=== PATIENT | female | born 1945 | race Caucasian/White ===

== ENCOUNTER 2025-02-22 15:03 | Inpatient (IN) | payer MEDICARE, OTHER, SELFPAY ==
[2025-02-22] VITALS (9 sets, daily range): BP systolic 108–154; BP diastolic 60–90; BMI 28.1
[2025-02-22 11:17] LABS: Hematocrit 44.9 % (37.0-47.0); Hemoglobin 14.5 g/dL (12.0-16.0); Mean Corp Hgb Conc. 32.3 g/dL (33.0-37.0); Mean Corpuscular Volume 101.1 fL (81.0-99.0); Platelet Count 128 10^3/uL (130-400); Red Cell Dist. Width 13.5 % (11.5-14.5)
[2025-02-22 11:28] LABS: ALT (SGPT) 23 U/L (0-35); AST (SGOT) 32 U/L (14-36); Albumin 4.2 g/dl (3.5-5.0); Alkaline Phosphatase 48 U/L (38-126); Blood Urea Nitrogen 16 mg/dl (7-17); Calcium 9.0 mg/dl (8.4-10.2); Carbon Dioxide 26 mmol/L (22-30); Chloride 102 mmol/L (98-107); Estimated Creatinine Clearance 69 ml/min; Glucose 128 mg/dl (70-99); Potassium 4.0 mmol/L (3.5-5.1); Sodium 136 mmol/L (135-145); Total Protein 7.3 g/dl (6.3-8.2); eGFR > 60.00
[2025-02-22 11:36] LABS: Absolute Neutrophils -Man Diff 4.1 10^3/uL (1.4-6.5); Normal RBC Morphology Yes; Platelets Checked Yes; Total Cells Counted 100
--- NOTE | 2025-02-22 11:46 | ED.GENMED ---
History of Present Illness
General
Chief Complaint: Change in Mental Status
Source: patient and records
Exam Limitations: clinical condition and altered mental status
Time Seen by Provider: 02/22/25 11:06
Nursing documentation reviewed up to this point in time: agreed with
History of Present Illness
History of Present Illness:
79-year-old female with some developmental issues, presents with fatigue decreased responsiveness usually oriented x 1 she has had a dry cough with confusion, low pulse ox
Past History
Past History
ED Past Medical History: Other
ED Past Surgical History: Other
Social History
Tobacco: Non-smoker
Alcohol: None
Drug: None
Living: detention
Employment: Not employed
Family History
Family History: Unable to obtain (Decreased responsive)
Review of Systems
Review of Systems
Unable to obtain full review of systems at this time due to: due to acuity
Other source history: transfer record
All Other Systems: Not applicable
Phy Exam
Physical Exam
Physical Exam:
Physical Exam
General: Ill-appearing female
Neck: supple. no meningeal signs. normal psoterior pharynx
Heart: s1/s2 regular rate and rhythm, no murmur. equal radial pulses.
Lungs: Crackles
Abdomen:Nontender
Neuro: Globally weak
Skin: no rash
Psychiatric: Unable to fully assess
Extremities: no edema.
Sepsis
Sepsis Screening
Sepsis Assessment: Sepsis Ruled Out
Sepsis Screen
Sepsis Screen: Sepsis Ruled Out
Date: 03/01/25
Time: 06:34
Course
Orders/Labs/Results
Orders:
Orders
02/22/25 11:00
Complete Blood Count/With Diff Urgent
Comprehensive Metabolic Panel Urgent
Manual Differential Urgent
NT-proBNP Urgent
Comment: ADD ON
02/22/25 11:26
CR Chest Portable - 1 View Urgent
Comment:
Reason For Exam: sob low sats
Reason Study Needs to be Portable: Unable to Transport
02/22/25 12:08
ABG [Arterial Blood Gas] Urgent
%Oxygen/Room Air: 4
02/22/25 13:09
Straight cath- Treatment ONCE
Ipratropium/Albuterol Sulfate [Duoneb] 3 ml INH R NOW STA
02/22/25 13:18
Urinalysis Reflex To Culture Urgent
Date Specimen was Collected: 02/22/25
Time Specimen was Collected: 13:16
Urine Microscopic Reflex Cult Urgent
Urine Culture Urgent
DARIUS Source: U
Specimen Description:
Date Specimen was Collected: 02/22/25
Time Specimen was Collected: 13:16
02/22/25 14:04
Add On- LAB Urgent
Tests Added?: urine culture
Urine Culture Urgent
DARIUS Source: Urine
Specimen Description:
Obtained by: Bladder
Date Specimen was Collected: 02/24/25
Time Specimen was Collected: 23:30
02/22/25 14:05
CefTRIAXone [Rocephin] 1,000 mg IV NOW STA
02/22/25 14:08
0.9% Sodium Chloride 1000 ml [Nss] 1,000 ml IV BOLUS
02/22/25 14:32
Admit/Transfer Patient As Directed
Co-Sign Provider:
Level of Care: Inpatient admission
Assign to:: Telemetry
Physician / Group: Francheska Lyn MD
Diagnosis: Toxic metabolic encephalopathy
Reason for Telemetry: Unstable coronarysyndrome
Other Reason for Telemetry: Requiring oxygen
Date to Stop Telemetry: 02/25/25
Time to Stop Telemetry: 11:00
Reason for Hospitalization: Toxic metabolic encephalopathy
Expected length of stay greater than two midnights?: Yes
ELOS- Estimated Length of Stay in days: 3
I certify the patient meets the requirements for IP care: Yes
02/22/25 14:33
Lactate Level [Lactic Acid] Q4H
Blood Culture Q30M
DARIUS Source: Blood/Venous
Specimen Description:
PRN Pain Medication Management As Directed
May give lesser potent ordered pain med per pt: Yes
preference::
Protocol:: Medication orders for pain may be administered in a
manner that supports deferring to patient preference
when the pt is:
- Requesting an ordered lesser potent pain medication.
Least to most potent pain medications are defined
as: acetaminophen < NSAID < tramadol < opioids
(morphine, oxycodone, hydromorphone).
- Requesting a lesser dose of the same medication IF
ORDERED.
- Requesting a less intrusive route of administration
if both routes are prescribed by the provider (PO <
IV).
02/22/25 14:36
Add On- LAB Routine
Tests Added?: BNP
02/22/25 14:39
Code Status As Directed
Resuscitation Status: Full Code
02/22/25 14:43
Furosemide [Lasix] 20 mg IV NOW STA
Midodrine [ProAmatine] 15 mg PO NOW STA
02/22/25 14:45
Blood Culture Q30M
DARIUS Source: Blood/Venous
Specimen Description:
02/22/25 14:52
ECG [Electrocardiogram (*1)] Urgent
Reason for Study: Shortness of Breath
Other Reason for Exam: tele admit
02/22/25 14:53
EKG- Treatment ONCE
02/22/25 Dinner
2000 calorie (17 carb) Diabetic
At Your Request: Non-Participating
Fluid Restriction: 1800 mL/day (60 oz)
Diabetic Diet: Sodium, 2 Gram
02/22/25 16:10
Acetaminophen [Tylenol] 650 mg PO Q4HPRN PRN fever>100, pain
Dextrose 50%-Water [Dextrose 50% Syringe] 12.5 grams IV [id number] PRN
Glucagon [GlucaGen] 1 mg IM PRN PRN
Hydrocortisone [Hydrocortisone 1% Cream] 1 applic TOPICAL [id number] PRN rash on back, stomach, arms
Nitroglycerin Sublingual [Nitrostat (Sublingual)] 0.4 mg SL Q5MPRN PRN chest pain
Polyethylene Glycol Powder [Miralax] 17 grams PO DAILY PRN constipation
02/22/25 16:10
HF DIETARY CONSULT Routine
HF EDUCATOR CONSULT Routine
Comment:
Activity As Directed
Activity Level: As Tolerated
Bedside Glucose Monitoring As Directed
Frequency: AC&HS
Additional Instructions:: Change to q6h if pt on TPN, tube feeding or not eating
Intake/ Output As Directed
Frequency: Per unit guidelines
Patient Education As Directed
Type: CHF folder
Comment: give on admission. Document in Interdisciplinary Education record
Sleep Apnea Assessment by RN As Directed
Comment:
Physician Instructions:
Vital Signs As Directed
Frequency: Other
Additional Instructions:: Q12 or per unit guidelines if more frequent.
Weight As Directed
Frequency: Daily
Type of Scale: Standing Scale
Comment: Daily morning weight. If unable to stand, use balanced bed scale.
Weight As Directed
Frequency: Once
Type of Scale: Standing Scale
Comment: Upon Admission. If unable to stand, use balanced bed scale.
Pulse Ox/cont/shift [RESP] Routine
Quantity: 1
Special Instructions: Daily pulse oximetry at rest. If greater than 92% at rest also obtain pulse oximetry
while ambulating as tolerated.
Pt Eval And Treat Routine
Activity Level: As Tolerated
DX Deep Vein Thrombosis Video Routine
02/22/25 16:30
Gabapentin [Neurontin] 300 mg PO TID
Insulin Aspart Corrective Low [Novolog Flexpen-Low Resistance] See Protocol SC AC
02/22/25 18:00
Enoxaparin Sodium [Lovenox] 40 mg SC QPM
02/22/25 20:00
Hydrocortisone [Cortef] 10 mg PO BID
fluticasone propionate 1 spray NASAL BID
02/22/25 22:00
Atorvastatin [Lipitor] 40 mg PO HS
Midodrine [ProAmatine] 15 mg PO TID
02/23/25 06:00
Echo 2D MMode Color/Doppler IN AM
Reason for Study: heart failure
02/23/25 07:15
Complete Blood Count/With Diff IN AM
Glycohemoglobin (HgbA1c) IN AM
02/23/25 08:00
Aspirin Low Dose EC [Aspir Low (Enteric Coated)] 81 mg PO DAILY
Fludrocortisone Acetate [Florinef] 0.2 mg PO DAILY
Furosemide [Lasix] 20 mg IV BID AT 0800,1600
Lidocaine [Lidocaine 4% Patch] 1 patch TOPICAL DAILY
Apply Lidocaine patch(s) to:: lower back
Metoprolol Xl [Toprol Xl] 12.5 mg PO DAILY
02/25/25 11:00
DC Protocol for Telemetry ONCE
Abnormal Lab Results
02/22/25 02/22/25 02/22/25
11:00 12:08 13:18
MCV 101.1 H fL
(81.0-99.0)
MCH 32.7 H pg
(27.0-31.0)
MCHC 32.3 L g/dL
(33.0-37.0)
Plt Count 128 L 10^3/uL
(130-400)
Band Neutrophils 5 H %
(0-3)
Monocytes (Manual) 19 H %
(2-9)
pCO2 36 H mmHg
(32-35)
ABG O2 Sat (Measured) 98.3 H %
(94-98)
Glucose 128 H mg/dl
(70-99)
Total Bilirubin 1.4 H mg/dl
(0.2-1.3)
Ur Occult Blood Reflex 4+ A
(Negative)
Urine Nitrite (Reflex) Positive A
(Negative)
Leukocyte Esterase Rfl 2+ A
(Negative)
Urine RBC 11-15 A /HPF
(0-2)
Urine WBC (Reflex) 40-50 A /HPF
(0-5)
Urine Bacteria (Reflex) Many A
(Negative)
Urine Albumin (Reflex) 3+ A
(Neg - Trace)
02/22/25 11:00
02/22/25 11:00
Vital Signs
Initial and Last Documented VS:
Initial Vital Signs
Temp Pulse Resp BP Pulse Ox
98.3 F 91 24 108/60 90
02/22/25 10:47 02/22/25 10:47 02/22/25 10:47 02/22/25 10:47 02/22/25 10:47
Last Documented Vital Signs
Temp Pulse Resp BP Pulse Ox
97.7 F 78 18 112/70 96
02/27/25 15:20 02/27/25 15:20 02/27/25 15:20 02/27/25 15:20 02/27/25 15:20
MDM/Problems Addressed
Differential Diagnosis Includes:
Sepsis hypercarbia UTI pneumonia
MDM/Problems Addressed:
Confusion
Chronic conditions affecting care: Neurological disorder and Kidney disease
Acute Exacerbation and/or Progression of Chronic Illness: Neurological disorder and Kidney disease
*Radiology
Radiology exam reviewed: preliminary read by ED provider
*Pulse Oximetry
SaO2: 96
Nasal Cannula flow liters per minute: 2
Oxygen Mode of Delivery: Room air
Patient hypoxic: yes
*EKG
Interpretation: abnormal
Comparison EKG: no comparison EKG present
Heart Rate: 78
Rate: normal
Rhythm: sinus
Ischemia: non-specific ST changes
*[employer] Interpretation
Rate: normal
Interpretation: normal
Heart Rate: 78
Rhythm: sinus
*Critical Care Note
Total Time (30-74mins, 75-104mins- exclusive of procedures): Not Applicable
Update Note
Update Note:
2:05 PM labs noted chest x-ray noted ABG noted patient still lethargic straight cath UA noted culture sent antibiotic sent patient fairly lethargic I believe she would benefit from admission
ED Attending Note
-
Portions of this chart may have been created with voice recognition software.� Occasional wrong word or��sound alike� substitutions may have occurred due to the inherent limitations of voice recognition software.
Discharge Plan
Departure
Patient Disposition: Admit
Date of Disposition: 02/22/25
Time of Disposition: 14:07
Admit to: Med/Surg
Presentation/result/management discussed w/ accepting MD/DO: Hospitalist
Patient with high blood pressure during this ER visit?: No
Condition: Fair
Covid-19: Not Applicable
Discharge Problem:
Delirium
Interventions
Interventions:
*Risk Screen - Suicide Last Done: 02/22/25 18:01
*General Assessment Last Done: 02/22/25 10:54
*Neglect/Abuse Screening Last Done: 02/22/25 10:54
*ED- Fall Risk Assessment Last Done: 02/22/25 15:24
*Nursing Disposition Last Done: 02/22/25 15:58
ED- Pulmonary Assessment Last Done: 02/22/25 10:50
ED- Neurological Assessment Last Done: 02/22/25 11:00
ED- Cardiac Assessment Last Done: 02/22/25 10:50
Discharge Date and Time
Discharge Date/Time: 02/22/25 15:58
[2025-02-22 12:23] LABS: B.E. 1.3 mmol/L; HCO3 25.0 mmol/L (21-28); O2 Saturation % 98.3 % (94-98); PCO2 36 mmHg (32-35); PO2 108 mmHg (83-108)
[2025-02-22] MEDS: DUONEB 3 ML INH (13:21)
[2025-02-22 13:34] LABS: Urine Character Slightly Cloudy (Clear)
[2025-02-22 13:47] LABS: Urine White Cell 40-50 /HPF (0-5)
--- NOTE | 2025-02-22 14:24 | HPS.HSE ---
Family Physician
-
Family Physician: MATTY ROSA MD
Chief Complaint
-
Acute onset delirium.
History of Present Illness
Isabela is a 79-year-old female with past medical history significant for essential hypertension, type 2 diabetes mellitus, unspecified intellectual disabilities, lack of coordination, primarily wheelchair-bound, hyperlipidemia, generalized muscle
weakness presents to the emergency room from [facility] ([facility] for evaluation of new onset confusion and increased work of breathing. When called [facility] facility I was told that this was very acute and she was fine until yesterday
night. She was a full code on the charts. I am not able to obtain further history from the patient as patient is awake and alert but not oriented to herself, person, place or time.
Medical History
Past Medical History
Past Medical History: Reports Other (ssential hypertension, type 2 diabetes mellitus, unspecified intellectual disabilities, lack of coordination, primarily wheelchair-bound, hyperlipidemia, generalized muscle weakness)
Past Surgical History: Reports Other (Bilateral knee arthroplasties.)
Social History
Unable to obtain full social history at this time due to: Acuity
Family History
Family History: Not pertinent
Allergies / Home Medications
Allergies reflects when Allergies were last updated in [facility].
Home Medications with original date entered in [facility]
Allergy/Medication List:
Allergies
Allergy/AdvReac Type Severity Reaction Status Date / Time
No Known Allergies Allergy Unverified 02/22/25 10:47
Home Medications
acetaminophen 325 mg tablet 650 mg PO Q4HPRN PRN fever>100, pain 02/22/25
alendronate 70 mg tablet 70 mg PO MO@0600 bone health 02/22/25
ascorbic acid (vitamin C) 1,000 mg tablet (Vitamin C) 1,000 mg PO DAILY Supplement 02/22/25
aspirin 81 mg tablet,delayed release 81 mg PO DAILY Blood Clot Prevention/Tx 02/22/25
atorvastatin 40 mg tablet 40 mg PO HS High Cholesterol 02/22/25
calcium carbonate 1,200 mg PO DAILY Supplement 02/22/25
celecoxib 200 mg capsule 200 mg PO DAILY Pain 02/22/25
cholecalciferol (vitamin D3) 25 mcg (1,000 unit) tablet (Vitamin D3) 25 mcg PO DAILY Supplement 02/22/25
fludrocortisone 0.1 mg tablet 0.2 mg PO DAILY hypernatremia 02/22/25
fluticasone propionate 50 mcg/actuation nasal spray,suspension 1 spray intranasal BID Congestion 02/22/25
furosemide 20 mg tablet 10 mg PO DAILY Fluid Retention/Swelling 02/22/25
gabapentin 300 mg capsule 300 mg PO TID Pain 02/22/25
hydrocortisone 1 % topical cream 1 applic topical [id number] PRN rash on back, stomach, arms 02/22/25
hydrocortisone 10 mg tablet 10 mg PO BID pruiritis 02/22/25
lidocaine 4 % topical patch (Lidocaine Pain Relief) 1 patch topical DAILY LOWER BACK PAIN 02/22/25
metformin 500 mg tablet 500 mg PO DAILY Diabetes 02/22/25
metoprolol succinate 25 mg tablet,extended release 24 hr 12.5 mg PO DAILY Blood Pressure 02/22/25
midodrine 5 mg tablet 15 mg PO TID Blood Pressure 02/22/25
nitroglycerin 0.4 mg sublingual tablet 0.4 mg sublingual Q5MPRN PRN chest pain 02/22/25
polyethylene glycol 3350 17 gram oral powder packet (Miralax) 17 g PO DAILY PRN constipation 02/22/25
Review of Systems
-
Unable to obtain full review of systems at this time due to: Acuity
Physical Exam
Vital Signs
Vital Signs
Temp Pulse Resp BP Pulse Ox
98.3 F 108 24 112/73 98
02/22/25 10:47 02/22/25 13:00 02/22/25 13:00 02/22/25 13:00 02/22/25 13:00
Physical Exam
General: Comfortable and Respiratory Distress
HEENT: Moist mucous membranes and PERRLA
Respiratory: Clear; No Wheezes, Rales, Rhonchi or Crackles
Cardiac: S1/S2, Regular Rhythm, Tachycardia, Murmur (Systolic, 3/6, best heard in aortic area), Rub and JVD; No Carotid Bruits or HJR
GI: Soft, Non Tender, Non Distended and Normal Bowel Sounds
Genito-urinary: No costovertebral tender
Musculoskeletal: No Clubbing, No Cyanosis and No Edema
Neuro: Awake, Alert and No Motor Deficits; No Oriented (To herself, time, person, place.)
Psych: Calm
Laboratory Results
-
02/22/25 11:00
02/22/25 11:00
Laboratory Results
pH 7.45 (7.35-7.45) 02/22/25 12:08
pCO2 36 mmHg (32-35) H 02/22/25 12:08
pO2 108 mmHg (83-108) 02/22/25 12:08
HCO3 25.0 mmol/L (21-28) 02/22/25 12:08
Total Bilirubin 1.4 mg/dl (0.2-1.3) H 02/22/25 11:00
AST 32 U/L (14-36) 02/22/25 11:00
ALT 23 U/L (0-35) 02/22/25 11:00
Alkaline Phosphatase 48 U/L (38-126) 02/22/25 11:00
Data Reviewed
-
Diagnostic Radiology: Image Personally Visualized and interpreted, Report Reviewed by me, Discussed with Physician, Discussed with Patient and Discussed with Family
Lab Data: Labs Reviewed by me, Discussed with Physician, Discussed with Patient and Discussed with Family
Impression/Plan
-
IMPRESSION: 79-year-old female with past medical history significant for essential hypertension, type 2 diabetes mellitus, unspecified intellectual disabilities, lack of coordination, primarily wheelchair-bound, hyperlipidemia, generalized muscle
weakness presents to the ER from [facility] by EMS for evaluation of acute onset confusion and increased work of breathing. Patient is diagnosed to have toxic metabolic encephalopathy and possible heart failure. Admit the patient to
telemetry and managed the patient for same.
PLAN:
Acute toxic metabolic encephalopathy-
Likely secondary to acute delirium, unknown etiology at this point.
Likely a confluence of heart failure and urinary tract infection with urinary retention.
Admit the patient to telemetry.
Blood cultures x 2 pending, chest x-ray showed no evidence for pneumonia or effusion, no acute cardiopulmonary process is noted.
Urinary retention noted, straight cath showed urine SQ cells-6-10, WBC-40-50, leuk esterase and nitrite positive.
Urine analysis reflex to culture.
Lactate levels pending. No prior history of stroke, 1 similar episode in the past.
Follow blood cultures, urine cultures, lactate levels.
SIRS - without sepsis
No lactate elevation, no leukocytosis, tachycardia, tachypnea, afebrile, Hypoxia and hypertension upon arrival.
Likely secondary to heart failure
diagnosis of UTI
Add ceftriaxone, await cultures
Acute hypoxemic respiratory failure-
requiring 2l nasal cannula flow
Likely secondary to Acute heart failure
Wean off as tolerated.
Heart failure/history of pulmonary hypertension
Prior history of heart failure, S/p 1 round of IV Lasix 20 mg in the ER
Oral dose of 20 mg once a day at home at baseline.
Hold home dose Lasix.
Most recent echo-08/25/2023-EF of 70 to 75%
Trend weights, trend I's and O's
Obtain proBNP, repeat echo, obtain EKG.
Sodium and fluid restricted diet.
Follow serum creatinine closely on IV Lasix 20 twice daily.
Obtain troponins
Essential hypertension-
On Toprol-XL and Lasix
Continue Toprol and Lasix.
History of osteoporosis-
Hold alendronate.
Orthostatic hypotension-
On midodrine and fludrocortisone
Continue both medications
Constipation-
Continue MiraLAX
Low back pain-
DDD, continue lidocaine patch to the back every 12 hours a day
Continue gabapentin
Type 2 diabetes mellitus-
Hold metformin
Add low resistance sliding scale
Accu-Cheks as needed, monitor blood glucose.
On diabetic diet
Obtain HbA1c in the a.m. tomorrow
nonobstructive CAD with angina-
ASCVD
Continue nitroglycerin as needed,
Continue aspirin and statin
Chronic pruritus-
Continue hydrocortisone twice daily.
DVT prophylaxis-
Lovenox
CODE STATUS-
Full code.
Workup-
Echocardiogram-
CONCLUSIONS
1. Hyperdynamic LV function. EF 70 to 75% with grade 1 diastolic dysfunction
2. Normal RV function
3. Mild mitral stenosis on the basis of moderate to severe mitral annular
calcification. No mitral regurgitation.
4. Minimal aortic stenosis.
5. Mild left atrial enlargement. Other chamber sizes are normal
6. Mildly atherosclerotic aortic root
--- NOTE | 2025-02-22 14:32 | W.PN.UPDATE ---
Update Note
Progress Note Update
This is an addendum to H&P written by resident physician Dr. Linda Romero
I saw and examined the patient.
The resident physician's note was reviewed and I agree with the note.
Comment:
Ms. Isabela Reyes is a 79 yo woman with hx development delay, HTN, HLD, NIDDM, balance issues, wheelchair bound who presents from [facility] for confusion. At baseline patient is oriented to time and place. Initially SpO2 90% RA then dropped
to 87%.
Triage VS: T 98.3, P 91, RR 24, BP 108/60, SpO2 90%
On exam patient is now on room air with SpO2 93%. She is tachypneic and confused, unable to have meaningful conversation or good history, asking to get out of bed. CV: tachycardia, + JVP. Abdomen soft. LE with muscle wasting, trace edema.
LABS: WBC 7, Hg 14.5, PLT 128, Na 136, K+ 4.0, Cl 102, CO2 26, BUn 16, Cr 0.7, Glucose 128
UA with 40-50 WBC, + nitrite, 11-15 RBC
CXR
IMPRESSION:
No acute disease of the chest
TME 2/2 UTI and heart failure exacerbation
-patient was brought in for being more confused than baseline
-treat infection and heart failure as below
Heart Failure Unknown EF, Acute Exacerbation
Mild Hypoxic Respiratory Insufficiency 2/2 Above, briefly on O2 in the ER
-admit to telemetry
-patient tachypneic with JVP
-check flu and covid
-she is on Lasix 10mg PO QD at home
-Lasix 20mg IV x 1 now, continue BID
-strict I/O, daily weights
-obtain TTE
TME 2/2 UTI
-continue IV Ceftriaxone
-follow up final cultures
HLD - ADMINISTRATIVE LAW JUDGE Statin
Chronic Hypotension/Orthostatic Hypotension on Midodrine and Fludrocortisone
-monitor for need for stress dose steroids; currently BP stable and patient due for afternoon Midodrine
Neuropathy - ADMINISTRATIVE LAW JUDGE Gabapentin
NIDDM - ISS
Remainder of plan per Dr. Garcia's note
[2025-02-22] MEDS: ROCEPHIN 1000 MG IV (14:46)
[2025-02-22] MEDS: LASIX 20 MG IV (15:21)
--- NOTE | 2025-02-22 15:24 | EDRN ---
Spoke with nursing supervisor sign shop regarding pt mental status and fall risk. Pleasantly confused,does rule in as fall risk. Poultry Helper communicating with floor staff.
[2025-02-22] MEDS: NEURONTIN 300 MG PO ×2 (16:42→21:06)
[2025-02-22] MEDS: TYLENOL 650 MG PO ×2 (16:42→21:05)
[2025-02-22 16:44] LABS: Glucose - Point of Care 130 mg/dl (70-99)
[2025-02-22] MEDS: NOVOLOG FLEXPEN-LOW RESISTANCE SC (16:54)
[2025-02-22] MEDS: LOVENOX 40 MG SC (17:02)
--- NOTE | 2025-02-22 18:00 | PTCARENOTE ---
Pt received from ED and pulled to bed from stretcher. Pt disoriented to self time and place, answering yes to all questions. Pt tachycardic on the monitor, Temp 102.8F. PRN Tylenol administered. Bed alarm is in place. Saurabh Munoz, updated over the
phone. POC ongoing.
--- NOTE | 2025-02-22 20:07 | W.PN.UPDATE ---
Update Note
Progress Note Update
Patient spiked a fever to 102.8 after admission orders in. Blood cultures pending from earlier. CXR without pneumonia. We are treating UTI which may be source of fever. I will also check flu, covid and procalcitonin.
She is s/p Lasix in the ER. Given fevers, will now stop standing lasix, day team to re-evaluate for fluid overload in the morning.
[2025-02-22 20:18] LABS: Troponin I 0.054 ng/ml
[2025-02-22] MEDS: CORTEF 10 MG PO (21:05)
[2025-02-22] MEDS: DESENEX/MITRAZOL/ZEASORB 1 APPLIC TOPICAL (21:06)
[2025-02-22] MEDS: LIPITOR 40 MG PO (21:07)
[2025-02-22 21:26] LABS: COVID-19 Antigen Negative (Negative)
[2025-02-22 21:39] LABS: Procalcitonin 1.30 ng/ml (0.0-0.25)
[2025-02-22 22:00] LABS: Glucose - Point of Care 176 mg/dl (70-99)
[2025-02-23 01:02] LABS: Troponin I 0.037 ng/ml
[2025-02-23 03:23] VITALS: BP 102/63
[2025-02-23 05:17] VITALS: BMI 27.5
[2025-02-23 07:35] VITALS: BP 105/67
[2025-02-23 07:38] LABS: Hematocrit 47.8 % (37.0-47.0); Hemoglobin 15.9 g/dL (12.0-16.0); Mean Corp Hgb Conc. 33.3 g/dL (33.0-37.0); Mean Corpuscular Volume 96.0 fL (81.0-99.0); Platelet Count 163 10^3/uL (130-400); Red Cell Dist. Width 13.6 % (11.5-14.5)
[2025-02-23] MEDS: FLORINEF 0.2 MG PO (07:46)
[2025-02-23] MEDS: NEURONTIN 300 MG PO ×3 (07:46→22:46)
[2025-02-23] MEDS: CORTEF 10 MG PO ×2 (07:46→22:45)
[2025-02-23] MEDS: ASPIR LOW (ENTERIC COATED) 81 MG PO (07:46)
[2025-02-23] MEDS: TOPROL XL 12.5 MG PO (07:46)
[2025-02-23] MEDS: DESENEX/MITRAZOL/ZEASORB 1 APPLIC TOPICAL ×2 (07:47→22:45)
[2025-02-23] MEDS: LIDOCAINE 4% PATCH 1 PATCH TOPICAL (07:47)
[2025-02-23 08:05] LABS: Glucose - Point of Care 108 mg/dl (70-99)
[2025-02-23 08:25] LABS: Absolute Neutrophils -Man Diff 5.1 10^3/uL (1.4-6.5); Platelets Checked Yes
[2025-02-23 08:26] LABS: Normal RBC Morphology Yes; Total Cells Counted 100
[2025-02-23 08:59] LABS: Glycohemoglobin (HgbA1c) 5.9 % (4.0-5.6)
[2025-02-23 09:04] LABS: ALT (SGPT) 24 U/L (0-35); Albumin 4.1 g/dl (3.5-5.0); Alkaline Phosphatase 55 U/L (38-126); Blood Urea Nitrogen 27 mg/dl (7-17); Calcium 8.8 mg/dl (8.4-10.2); Carbon Dioxide 25 mmol/L (22-30); Chloride 102 mmol/L (98-107); Estimated Creatinine Clearance 60 ml/min; Magnesium 2.0 mg/dl (1.6-2.3); Potassium 4.2 mmol/L (3.5-5.1); Sodium 138 mmol/L (135-145); Total Protein 7.4 g/dl (6.3-8.2); eGFR > 60.00
[2025-02-23] MEDS: NOVOLOG FLEXPEN-LOW RESISTANCE SC ×3 (09:05→16:42)
[2025-02-23 09:08] LABS: Troponin I 0.018 ng/ml
--- NOTE | 2025-02-23 09:28 | W.PN.UPDATE ---
Update Note
Progress Note Update
I saw the patient and evaluated the patient with the residents.
HPI: 79 yo woman with hx development delay, HTN, HLD, NIDDM, balance issues, wheelchair bound, from [facility]; p/w confusion and increased work of breathing.
Limited history from the patient due to confusion.
At baseline, patient is oriented to time and place.
Her initial SpO2 was 90% RA then dropped to 87%.
CXR:
No acute disease of the chest
A/P:
# Acute metabolic encephalopathy, due to sepsis POA with E coli bacteremia and E coli UTI
Admission blood clotures x2 positive, growing E coli, follow sensitivity
Urine culture positive for E coli
Cont IV Ceftriaxone
Check kidney US
Noted COVID/Flu negative, CXR unrevealing
Monitor MS
# Acute on chronic heart failure exacerbation, unknown type
# Mild Hypoxic Respiratory Insufficiency, resolved
Pt was briefly on O2 in the ER, weaned back to RA
s/p IV lasix 20 mg in ED, Cont home dose PO lasix 10 mg daily
Cont CULTURIST Toprol with hold parameter
Follow daily weight
Check Echo
# Essential hypertension
Cont Toprol-XL and Lasix with holding parameter
# HLD - CULTURIST Statin
# Chronic Hypotension/Orthostatic Hypotension on Midodrine and Fludrocortisone
monitor BP
# Neuropathy - CULTURIST Gabapentin
# NIDDM - ISS
DVT prophylaxis-Lovenox
CODE STATUS-Full code.
total time 51 min
[2025-02-23 09:39] LABS: AST (SGOT) 33 U/L (14-36); Glucose 128 mg/dl (70-99)
--- NOTE | 2025-02-23 09:58 | W.PN.HOSP.TC ---
Today's Communication/Plan
-
blood cltx grew E coli
f/u repeat blood cultures
IV Ceftriaxone 2g
Assessment / Plan
Assessment / Plan
This is a 79 yo woman with generalized muscle weakness, hx development delay, HTN, HLD, NIDDM, balance issues, wheelchair bound who presents from [place] [facility] for confusion. At baseline patient is oriented to time and place.
CXR:
No acute disease of the chest
A/P:
#Acute metabolic encephalopathy, due to sepsis POA with E coli bacteremia and E coli UTI
-Admission blood cultures x2 positive; grew E coli
-Urine culture positive for E coli; f/u repeat blood cultures
-IV Ceftriaxone 1g to IV Ceftriaxone 2g
-F/u Kidney US
-Noted COVID/Flu (-)
-CXR unrevealing
#Acute on chronic heart failure exacerbation, unknown type
#Mild Hypoxic Respiratory Insufficiency, resolved
-f/u echo
-s/p IV lasix 20 mg in ED
-Home dose Lasix 10mg po daily
-Home Toprol XL
-Daily weights
#Essential hypertension
-Toprol-XL and Lasix 10mg daily
#HLD
-Home atorvastatin
#Chronic Hypotension/Orthostatic Hypotension
-Home midodrine 10mg PO TID and Fludrocortisone
-CTM BP
#Neuropathy
-Gabapentin 300mg PO TID
#NIDDM
-ISS
DVT prophylaxis-Lovenox
CODE STATUS-Full code.
Anticipated Discharge: 24 - 48 hours
Subjective/Interval History
-
Date of Service: February 23, 2025
- This morning, she's laying comfortably in bed. Intermittently moaning. Alert to self.
Objective Data
-
Labs:
Laboratory Results
02/23/25 02/23/25
07:15 08:18
WBC 9.3
Hgb 15.9
Hct 47.8 H
Plt Count 163 D
Sodium Cancelled 138
Potassium Cancelled 4.2
Chloride Cancelled 102
Carbon Dioxide Cancelled 25
BUN Cancelled 27 H
Creatinine Cancelled 0.8
Glucose Cancelled 128 H
Calcium Cancelled 8.8
Total Bilirubin Cancelled 1.7 H
AST Cancelled 33
ALT Cancelled 24
Alkaline Phosphatase Cancelled 55
Vital Signs:
Vital Signs
Temp Pulse Resp BP Pulse Ox
98.7 F 99 18 105/67 94
02/23/25 07:35 02/23/25 07:35 02/23/25 07:35 02/23/25 07:35 02/23/25 07:35
I&O
02/22/25 02/23/25 02/24/25
06:59 06:59 06:59
Intake Total 480 / 480
Balance 480 / 480
Physical Exam
-
General: Comfortable and Respiratory Distress
HEENT: Moist Mucous Membranes and PERRLA
Respiratory: Clear to Auscultation
Cardiac: Regular Rhythm and S1/S2
GI: Soft, Nontender, Nondistended and Normal Bowel Sounds
Genito-urinary: No Costovertebral Tender
Musculoskeletal: No Clubbing, No Cyanosis and No Edema
Neuro: AO x 3
Psych: Calm
[2025-02-23 10:51] VITALS: BMI 27.5
[2025-02-23] MEDS: LASIX 10 MG PO (11:01)
[2025-02-23] MEDS: STERILE WATER FOR INJECTION 20 ML IV (11:36)
[2025-02-23] MEDS: ROCEPHIN 2000 MG IV (11:36)
[2025-02-23 12:22] VITALS: BP 107/70
[2025-02-23 12:34] LABS: Glucose - Point of Care 140 mg/dl (70-99)
--- NOTE | 2025-02-23 12:35 | CM ---
Patient seen at bedside
IA completed-spoke with Asya nurse from [facility]
Patient resides in [facility] since July
Spoke with brother Saurabh & patient was in [facility]
Saurabh states that she had multiple UTI's in past, he reports patient typically aaox3
PLOF: per Asya patient would use wheelchair & self propel to meals, would use walker in her room
DME: Walker, wheelchair
PT to eval
PCP: Alvarez Sawyer
Pharmacy: [facility]
PLAN; TBD, follow hospital progress, CM to follow for discharge planning/needs
[2025-02-23 15:00] VITALS: BP 98/64
[2025-02-23 16:33] LABS: Glucose - Point of Care 113 mg/dl (70-99)
[2025-02-23] MEDS: LOVENOX 40 MG SC (17:05)
[2025-02-23 19:15] VITALS: BP 128/75
[2025-02-23 21:47] LABS: Glucose - Point of Care 188 mg/dl (70-99)
[2025-02-23] MEDS: REMOVE LIDOCAINE PATCH 1 PATCH REMOVE (22:42)
[2025-02-23] MEDS: TYLENOL 650 MG PO (22:45)
[2025-02-23] MEDS: LIPITOR 40 MG PO (22:47)
[2025-02-23 23:00] VITALS: BP 115/66
[2025-02-24 03:02] VITALS: BP 115/67
[2025-02-24 05:31] VITALS: BMI 27.1
[2025-02-24 07:33] VITALS: BP 95/62
[2025-02-24 07:54] LABS: Glucose - Point of Care 135 mg/dl (70-99)
[2025-02-24 08:27] LABS: Hematocrit 41.7 % (37.0-47.0); Hemoglobin 13.5 g/dL (12.0-16.0); Mean Corp Hgb Conc. 32.4 g/dL (33.0-37.0); Mean Corpuscular Volume 98.1 fL (81.0-99.0); Platelet Count 146 10^3/uL (130-400); Red Cell Dist. Width 13.4 % (11.5-14.5)
[2025-02-24 08:39] LABS: ALT (SGPT) 30 U/L (0-35); AST (SGOT) 40 U/L (14-36); Albumin 3.7 g/dl (3.5-5.0); Alkaline Phosphatase 49 U/L (38-126); Blood Urea Nitrogen 23 mg/dl (7-17); Calcium 8.5 mg/dl (8.4-10.2); Carbon Dioxide 27 mmol/L (22-30); Chloride 102 mmol/L (98-107); Estimated Creatinine Clearance 61 ml/min; Glucose 129 mg/dl (70-99); Potassium 4.0 mmol/L (3.5-5.1); Sodium 136 mmol/L (135-145); Total Protein 6.8 g/dl (6.3-8.2); eGFR > 60.00
[2025-02-24 09:13] LABS: Absolute Neutrophils -Man Diff 2.0 10^3/uL (1.4-6.5); Normal RBC Morphology Yes; Platelets Checked Yes; Total Cells Counted 100
[2025-02-24] MEDS: NOVOLOG FLEXPEN-LOW RESISTANCE SC ×2 (09:41→16:42)
[2025-02-24] MEDS: TOPROL XL 12.5 MG PO (09:51)
[2025-02-24] MEDS: LASIX 10 MG PO (09:51)
[2025-02-24] MEDS: ASPIR LOW (ENTERIC COATED) 81 MG PO (09:51)
[2025-02-24] MEDS: NEURONTIN 300 MG PO ×3 (09:51→21:15)
[2025-02-24] MEDS: LIDOCAINE 4% PATCH 1 PATCH TOPICAL (09:52)
[2025-02-24] MEDS: FLORINEF 0.2 MG PO (09:53)
[2025-02-24] MEDS: CORTEF 10 MG PO ×2 (09:53→21:15)
[2025-02-24] MEDS: DESENEX/MITRAZOL/ZEASORB 1 APPLIC TOPICAL ×2 (09:54→21:15)
--- NOTE | 2025-02-24 10:22 | CM ---
Addendum entered by Aggie Murillo 02/24/25 16:55:
Therapy recommending home health; will need to call to [facility] to confirm that patient can return and set up VN with patient choice of VN. CM will continue to follow for discharge planning needs.
Plan; home with VN; confirm with personal choice for VN
Original Note:
Patient seen at bedside on [address] this am. Patient pending therapy assessment to clarify level of care needs. CM will continue to follow for discharge planning needs.
Plan; SNF pending recommendations of therapy
[2025-02-24 10:24] LABS: COVID-19 Antigen Negative (Negative)
--- NOTE | 2025-02-24 10:31 | W.PN.HOSP.TC ---
Today's Communication/Plan
-
f/u CXR for new cough
Duonebs prn
Mucinex, lozenges
Assessment / Plan
Assessment / Plan
This is a 79 yo woman with generalized muscle weakness, hx development delay, HTN, HLD, NIDDM, balance issues, wheelchair bound who presents from [place] [facility] for confusion. At baseline patient is oriented to time and place.
CXR:
No acute disease of the chest
A/P:
#Acute metabolic encephalopathy 2/2 to sepsis d/t E coli bacteremia and E coli UTI, improving
-Admission blood cultures x2 positive; grew E coli
-Urine culture positive for E coli; f/u repeat blood cultures
-IV Ceftriaxone 1g to IV Ceftriaxone 2g 02/24, add Flagyl 500mg BID
-F/u Kidney US
-Noted COVID/Flu (-)
-CXR unrevealing
#Cough
#Congestion
#Rhinorrhea
-F/u CXR
-Duonebs prn
-Mucinex
-Lozenges prn
#Acute on chronic heart failure exacerbation, unknown type
#Mild Hypoxic Respiratory Insufficiency, resolved
-f/u echo
-s/p IV lasix 20 mg in ED
-Home dose Lasix 10mg po daily
-Home Toprol XL
-Daily weights
#Essential hypertension
-Toprol-XL and Lasix 10mg daily
#HLD
-Home atorvastatin
#Chronic Hypotension/Orthostatic Hypotension
-Home midodrine 10mg PO TID and Fludrocortisone
-CTM BP
#Neuropathy
-Gabapentin 300mg PO TID
#NIDDM
-ISS
DVT prophylaxis-Lovenox
CODE STATUS-Full code.
Anticipated Discharge: 24 - 48 hours
Subjective/Interval History
-
Date of Service: February 24, 2025
- This morning, back to baseline per LTC facility. She's complaining of cough, rhinorrhea, and congested. Ordered CXR, Duonebs, lozenges, Covid/flu test, and sputum culture. Flagyl added.
- She complains of dysuria intermittently.
Objective Data
-
Labs:
Laboratory Results
02/24/25
07:42
WBC 4.5 L
Hgb 13.5
Hct 41.7
Plt Count 146
Sodium 136
Potassium 4.0
Chloride 102
Carbon Dioxide 27
BUN 23 H
Creatinine 0.7
Glucose 129 H
Calcium 8.5
Total Bilirubin 0.8
AST 40 H
ALT 30
Alkaline Phosphatase 49
Vital Signs:
Vital Signs
Temp Pulse Resp BP Pulse Ox
98.7 F 89 15 95/62 95
02/24/25 07:33 02/24/25 07:33 02/24/25 07:33 02/24/25 07:33 02/24/25 07:33
I&O
02/23/25 02/24/25 02/25/25
06:59 06:59 06:59
Intake Total 480 / 480 720 / 720
Balance 480 / 480 720 / 720
Physical Exam
-
General: Well Developed, Well Nourished, No Apparent Distress, Comfortable and Conversant
HEENT: Normocephalic, Atraumatic and Moist Mucous Membranes
Respiratory: Wheezes
Cardiac: Regular Rhythm
GI: Soft, Nontender and Nondistended
Skin: Warm and Dry
Neuro: AO x 3
Psych: Calm
[2025-02-24 11:21] VITALS: BP 137/81
[2025-02-24] MEDS: MUCINEX 600 MG PO ×2 (11:45→21:15)
[2025-02-24] MEDS: FLAGYL 500 MG PO ×2 (11:46→21:15)
[2025-02-24 12:06] LABS: Glucose - Point of Care 178 mg/dl (70-99)
--- NOTE | 2025-02-24 12:08 | W.PN.UPDATE ---
Update Note
Progress Note Update
I saw the patient and evaluated the patient with the residents.
HPI: 79 yo woman with hx development delay, HTN, HLD, NIDDM, balance issues, wheelchair bound, from [facility]; p/w confusion from LTC and increased work of breathing.
At baseline, patient is oriented to time and place.
A/P:
# Acute metabolic encephalopathy (resolved), due to sepsis POA with E coli bacteremia and E coli UTI
Admission blood clotures x2 positive, growing E coli, follow sensitivity
Urine culture positive for E coli
Cont IV Ceftriaxone
Check kidney US
Noted COVID/Flu negative, CXR unrevealing
Monitor MS, improved and appears to be back to baseline, awake and conversant
# Acute on chronic heart failure exacerbation, unknown type
# Mild Hypoxic Respiratory Insufficiency, resolved
Pt was briefly on O2 in the ER, weaned back to RA
s/p IV lasix 20 mg in ED, Cont home dose PO lasix 10 mg daily
Cont [facility] [place] Toprol with hold parameter
Follow daily weight
Echo showed mildly reduced EF 40 to 45%. Mild aortic stenosis. Mild to moderate mitral stenosis.
# Worsening cough 02/24
Check repeat CXR
SPL eval
Add Flagyl for aspiration pneumonia coverage
# Essential hypertension
Cont Toprol-XL and Lasix with holding parameter
# HLD - [facility] [place] Statin
# Chronic Hypotension/Orthostatic Hypotension on Midodrine and Fludrocortisone
monitor BP
# Neuropathy - [facility] [place] Gabapentin
# NIDDM - ISS
DVT prophylaxis-Lovenox
CODE STATUS-Full code.
[2025-02-24] MEDS: ROCEPHIN 2000 MG IV (12:42)
[2025-02-24] MEDS: STERILE WATER FOR INJECTION 20 ML IV (12:43)
[2025-02-24] MEDS: NOVOLOG FLEXPEN-LOW RESISTANCE 1 UNITS SC (12:45)
[2025-02-24 15:32] VITALS: BP 96/66
[2025-02-24 16:37] LABS: Glucose - Point of Care 100 mg/dl (70-99)
[2025-02-24] MEDS: LOVENOX 40 MG SC (17:13)
[2025-02-24 19:00] VITALS: BP 109/71
[2025-02-24 20:09] VITALS: BP 109/71
[2025-02-24] MEDS: REMOVE LIDOCAINE PATCH 1 PATCH REMOVE (21:15)
[2025-02-24] MEDS: LIPITOR 40 MG PO (21:15)
[2025-02-24] MEDS: TYLENOL 650 MG PO (21:16)
[2025-02-24 21:29] LABS: Glucose - Point of Care 146 mg/dl (70-99)
[2025-02-25 00:05] VITALS: BP 122/70
[2025-02-25 03:55] VITALS: BP 114/69
[2025-02-25 06:00] VITALS: BMI 27.2
[2025-02-25 07:29] LABS: Hematocrit 40.2 % (37.0-47.0); Hemoglobin 13.2 g/dL (12.0-16.0); Mean Corp Hgb Conc. 32.8 g/dL (33.0-37.0); Mean Corpuscular Volume 98.3 fL (81.0-99.0); Platelet Count 186 10^3/uL (130-400); Red Cell Dist. Width 13.2 % (11.5-14.5)
--- NOTE | 2025-02-25 07:40 | W.PN.HOSP.TC ---
Addendum entered and electronically signed by Cirilo Langford MD 02/25/25 14:53:
Seen and examined the patient. Agree with the plan formatted by the resident. See changes in my documentation.
79-year-old from long term here with E. coli bacteremia.
Ultrasound of the kidney-unremarkable without any hydronephrosis
Chest x-ray-no acute changes. Mild gaseous distention of the stomach
CVS: S1-S2 normal
Chest: CTA B/L
Abdomen: Soft, NT , Bowel sounds present
Extremities: No edema
# Acute metabolic encephalopathy secondary to sepsis-resolved, back to baseline.
# Sepsis present on admission secondary to E. coli bacteremia secondary to E. coli UTI
Blood cultures positive, urine cultures positive for E. coli
Continue IV ceftriaxone
Ultrasound of the kidneys-no hydro
# Acute on chronic heart failure with midrange ejection fraction
Got 1 dose of Lasix in the ER-continue with p.o. Lasix, Toprol
Follow daily weights
Echo with EF 40 to 45%, mild aortic stenosis, mild to moderate MS
# Acute hypoxic respiratory tqfrdzckkqdbo-vcogyv-gaa oxygen
Speech evaluation rule out aspiration
Flagyl added with suspicion of aspiration
# Diabetes-hemoglobin A1c-5.9 on 02/23/25, continue metformin, Accu-Cheks and sliding scale coverage
# Hypertension-continue Toprol-XL
# Hyperlipidemia will continue statin
# Chronic orthostatic Hypotension on midodrine , Hydrocortisone and Fludrocortisone. Per son no diagnosis of adrenal insufficiency.
# Gukicxawfr-EKX-rrfegqba gabapentin
# Arthritis/osteoporosis-on alendronate as outpatient
# DVT prophylaxis-Lovenox
# Full code
D/W RN at bed side
Part of this note was created using voice recognition system. Occasional wrong word or��sound alike� substitutions may have inadvertently occurred due to the inherent limitations of voice recognition software. If noted kindly bring it to my
attention for correction.
Original Note:
Today's Communication/Plan
-
Nasal spray added
Repeat blood cultures grew E. coli as per first set of blood cultures on admission
Continue antibiotics
Speech eval
Assessment / Plan
Assessment / Plan
This is a 79 yo woman with generalized muscle weakness, hx development delay, HTN, HLD, NIDDM, balance issues, wheelchair bound who presents from [place] for confusion. At baseline patient is oriented to time and place.
CXR:
No acute disease of the chest
A/P:
#Acute metabolic encephalopathy 2/2 to sepsis d/t E coli bacteremia and E coli UTI, improving
-Admission blood cultures x2 positive and repeat blood cultures x 2 grew E coli
-Urine culture positive for E coli
-IV Ceftriaxone 1g to IV Ceftriaxone 2g 02/24, added Flagyl 500mg BID 02/24; dc after speech eval clearance
-Kidney US 02/24 unremarkable appearance of the kidneys without hydronephrosis.
-Noted COVID/Flu (-)
-CXR unrevealing
#Cough
#Congestion
#Rhinorrhea
-CXR 02/24 showing decreased lung volumes and mild gaseous distention of the stomach.
-Nasal spray added.
-Duonebs every 4 hours as needed
-Mucinex 600 mg twice daily
-Lozenges prn
#Acute on chronic heart failure exacerbation, unknown type
#Mild Hypoxic Respiratory Insufficiency, resolved
-f/u echo
-s/p IV lasix 20 mg in ED
-Home dose Lasix 10mg po daily
-Home Toprol XL
-Daily weights
#Essential hypertension
-Toprol-XL and Lasix 10mg daily
#HLD
-Home atorvastatin
#Chronic Hypotension/Orthostatic Hypotension
-Home midodrine 10mg PO TID and Fludrocortisone
-CTM BP
#Neuropathy
-Gabapentin 300mg PO TID
#NIDDM
-ISS
DVT prophylaxis-Lovenox
CODE STATUS-Full code.
Anticipated Discharge: 24 - 48 hours
Subjective/Interval History
-
Date of Service: February 25, 2025
-This morning, she is sitting on the commode and quite upset that she is still congested and having flulike symptoms. She wants Coricidin because that works for her outpatient, not Mucinex or DuoNebs as ordered here. I added on nasal spray here.
- No other complaints otherwise. Dysuria is resolved.
Objective Data
-
Labs:
Laboratory Results
02/25/25
07:10
WBC 4.3 L
Hgb 13.2
Hct 40.2
Plt Count 186 D
Sodium Pending
Potassium Pending
Chloride Pending
Carbon Dioxide Pending
BUN Pending
Creatinine Pending
Glucose Pending
Calcium Pending
Total Bilirubin Pending
AST Pending
ALT Pending
Alkaline Phosphatase Pending
Vital Signs:
Vital Signs
Temp Pulse Resp BP Pulse Ox
98.3 F 78 20 114/69 99
02/25/25 03:55 02/25/25 03:55 02/25/25 03:55 02/25/25 03:55 02/25/25 03:55
I&O
02/24/25 02/25/25 02/26/25
06:59 06:59 06:59
Intake Total 720 / 720 600 / 600
Balance 720 / 720 600 / 600
Physical Exam
-
General: Well Developed, Well Nourished, Comfortable, Appears in Distress (On commode, says her head is pounding from congestion) and Conversant
HEENT: Normocephalic, Atraumatic and Moist Mucous Membranes
Respiratory: Clear to Auscultation
Cardiac: Regular Rhythm
GI: Soft, Nontender, Nondistended and Normal Bowel Sounds
Musculoskeletal: No Clubbing, No Cyanosis and No Edema
Skin: Warm and Dry
Neuro: AO x 3
Psych: Calm and Intact Judgement/Insight
[2025-02-25 07:45] VITALS: BP 111/61
[2025-02-25 07:58] LABS: Glucose - Point of Care 114 mg/dl (70-99)
[2025-02-25 08:02] LABS: Absolute Neutrophils -Man Diff 1.8 10^3/uL (1.4-6.5); Normal RBC Morphology Yes; Platelets Checked Yes; Total Cells Counted 100
[2025-02-25 08:26] LABS: ALT (SGPT) 36 U/L (0-35); AST (SGOT) 45 U/L (14-36); Albumin 3.7 g/dl (3.5-5.0); Alkaline Phosphatase 52 U/L (38-126); Blood Urea Nitrogen 24 mg/dl (7-17); Calcium 8.6 mg/dl (8.4-10.2); Carbon Dioxide 25 mmol/L (22-30); Chloride 104 mmol/L (98-107); Estimated Creatinine Clearance 79 ml/min; Glucose 108 mg/dl (70-99); Potassium 3.8 mmol/L (3.5-5.1); Sodium 137 mmol/L (135-145); Total Protein 6.7 g/dl (6.3-8.2); eGFR > 60.00
[2025-02-25] MEDS: ASPIR LOW (ENTERIC COATED) 81 MG PO (08:43)
[2025-02-25] MEDS: LASIX 10 MG PO (08:43)
[2025-02-25] MEDS: MUCINEX 600 MG PO ×2 (08:43→22:23)
[2025-02-25] MEDS: NEURONTIN 300 MG PO ×3 (08:43→22:23)
[2025-02-25] MEDS: FLORINEF 0.2 MG PO (08:44)
[2025-02-25] MEDS: TOPROL XL 12.5 MG PO (08:44)
[2025-02-25] MEDS: LIDOCAINE 4% PATCH 1 PATCH TOPICAL (08:44)
[2025-02-25] MEDS: FLAGYL 500 MG PO ×2 (08:45→22:23)
[2025-02-25] MEDS: NOVOLOG FLEXPEN-LOW RESISTANCE SC ×2 (08:46→17:17)
[2025-02-25] MEDS: DESENEX/MITRAZOL/ZEASORB 1 APPLIC TOPICAL ×2 (08:55→22:23)
[2025-02-25 11:28] VITALS: BP 105/55
[2025-02-25 11:47] LABS: Glucose - Point of Care 181 mg/dl (70-99)
[2025-02-25] MEDS: CORTEF 10 MG PO ×2 (12:22→22:23)
[2025-02-25] MEDS: NOVOLOG FLEXPEN-LOW RESISTANCE 1 UNITS SC (12:22)
[2025-02-25] MEDS: STERILE WATER FOR INJECTION 20 ML IV (12:25)
[2025-02-25] MEDS: ROCEPHIN 2000 MG IV (12:25)
[2025-02-25 15:22] VITALS: BP 130/62
[2025-02-25] MEDS: TYLENOL 650 MG PO ×2 (15:35→22:25)
[2025-02-25 16:44] LABS: Glucose - Point of Care 92 mg/dl (70-99)
--- NOTE | 2025-02-25 17:56 | PTOTSP ---
Speech Therapy Evaluation
Pt at an elevated risk of aspiration given current waning mental status and history of metabolic encephalopathy, developmental delay, and general weakness. Pt managed regular solids and thin liquids with no overt s/sx of aspiration, no breath
changes, and no wet vocal quality. Pt's swallow function appears to be WFL at bedside. However, cannot rule out silent aspiration at bedside. RN denied pt having any difficulty with meds (whole in thins). Pt on room air with SaO2 at 96.
Recommendation:
1. Regular solids, thin liquids
2. Meds as best tolerated
3. Standard aspiration precautions
4. No recommending speech-language therapy. If concerns arise, please re-consult.
[2025-02-25] MEDS: LOVENOX 40 MG SC (18:15)
[2025-02-25 21:12] LABS: Glucose - Point of Care 124 mg/dl (70-99)
[2025-02-25] MEDS: LIPITOR 40 MG PO (22:19)
[2025-02-25] MEDS: REMOVE LIDOCAINE PATCH 1 PATCH REMOVE (22:23)
[2025-02-25 23:00] VITALS: BP 136/53
[2025-02-26 06:00] VITALS: BMI 26.8
--- NOTE | 2025-02-26 06:30 | PTCARENOTE ---
Oral care was not performed on patient because she stated that it was her preference to brush her teeth in the morning.
[2025-02-26 07:00] VITALS: BP 106/50
[2025-02-26 07:02] LABS: Glucose - Point of Care 99 mg/dl (70-99)
[2025-02-26 07:24] LABS: Hematocrit 40.2 % (37.0-47.0); Hemoglobin 12.9 g/dL (12.0-16.0); Mean Corp Hgb Conc. 32.1 g/dL (33.0-37.0); Mean Corpuscular Volume 99.8 fL (81.0-99.0); Nucleated Red Blood Cells % 0 %; Platelet Count 203 10^3/uL (130-400); Red Cell Dist. Width 13.2 % (11.5-14.5)
[2025-02-26 07:55] LABS: ALT (SGPT) 32 U/L (0-35); AST (SGOT) 39 U/L (14-36); Albumin 3.6 g/dl (3.5-5.0); Alkaline Phosphatase 43 U/L (38-126); Blood Urea Nitrogen 20 mg/dl (7-17); Calcium 8.6 mg/dl (8.4-10.2); Carbon Dioxide 24 mmol/L (22-30); Chloride 107 mmol/L (98-107); Estimated Creatinine Clearance 71 ml/min; Glucose 102 mg/dl (70-99); Potassium 4.0 mmol/L (3.5-5.1); Sodium 140 mmol/L (135-145); Total Protein 6.5 g/dl (6.3-8.2); eGFR > 60.00
[2025-02-26] MEDS: NOVOLOG FLEXPEN-LOW RESISTANCE SC ×2 (09:25→17:33)
[2025-02-26] MEDS: NEURONTIN 300 MG PO ×3 (09:26→21:37)
[2025-02-26] MEDS: ASPIR LOW (ENTERIC COATED) 81 MG PO (09:27)
[2025-02-26] MEDS: FLAGYL 500 MG PO (09:27)
[2025-02-26] MEDS: LASIX 10 MG PO (09:27)
[2025-02-26] MEDS: FLORINEF 0.2 MG PO (09:27)
[2025-02-26] MEDS: LIDOCAINE 4% PATCH 1 PATCH TOPICAL (09:28)
[2025-02-26] MEDS: MUCINEX 600 MG PO ×2 (09:28→21:38)
[2025-02-26] MEDS: DESENEX/MITRAZOL/ZEASORB 1 APPLIC TOPICAL ×2 (09:29→21:38)
[2025-02-26] MEDS: TOPROL XL 12.5 MG PO (09:37)
--- NOTE | 2025-02-26 09:46 | W.PN.HOSP.TC ---
Addendum entered and electronically signed by Cirilo Langford MD 02/26/25 14:07:
Seen and examined the patient. Agree with the plan formatted by the resident. See changes in my documentation.
79-year-old from halfway here with E. coli bacteremia.
Ultrasound of the kidney-unremarkable without any hydronephrosis
Chest x-ray-no acute changes. Mild gaseous distention of the stomach
CVS: S1-S2 normal
Chest: CTA B/L
Abdomen: Soft, NT , Bowel sounds present
Extremities: No edema
# Acute metabolic encephalopathy secondary to sepsis-resolved, back to baseline.
# Sepsis present on admission secondary to E. coli bacteremia secondary to E. coli UTI
Blood cultures positive, urine cultures positive for E. coli
Continue IV ceftriaxone till discharge and changed to Ceftin after that
Ultrasound of the kidneys-no hydro
# Acute on chronic heart failure with midrange ejection fraction
Got 1 dose of Lasix in the ER-continue with p.o. Lasix, Toprol
Follow daily weights
Echo with EF 40 to 45%, mild aortic stenosis, mild to moderate MS
# Acute hypoxic respiratory grlphfdazwfbd-wsqvej-czc oxygen
Speech evaluation noted. No evidence of aspiration. Will discontinue Flagyl
# Diabetes-hemoglobin A1c-5.9 on 02/23/25, continue metformin, Accu-Cheks and sliding scale coverage
# Hypertension-continue Toprol-XL
# Hyperlipidemia will continue statin
# Chronic orthostatic Hypotension on midodrine , Hydrocortisone and Fludrocortisone. Per son no diagnosis of adrenal insufficiency.
# Aoxdfkfkiz-VRP-modqqgps gabapentin
# Arthritis/osteoporosis-on alendronate as outpatient
# DVT prophylaxis-Lovenox
# Full code
D/W RN at bed side
Part of this note was created using voice recognition system. Occasional wrong word or��sound alike� substitutions may have inadvertently occurred due to the inherent limitations of voice recognition software. If noted kindly bring it to my
attention for correction.
Original Note:
Today's Communication/Plan
-
DC IV Flagyl
Continue IV ceftriaxone, transition to Ceftin 500 mg twice daily at time of discharge
Reeval by PT for dispo
Assessment / Plan
Assessment / Plan
This is a 79 yo woman with generalized muscle weakness, hx development delay, HTN, HLD, NIDDM, balance issues, wheelchair bound who presents from [place] for confusion. At baseline patient is oriented to time and place.
CXR:
No acute disease of the chest
A/P:
#Acute metabolic encephalopathy 2/2 to sepsis d/t E coli bacteremia and E coli UTI, improving
-Admission blood cultures x2 positive and repeat blood cultures x 2 grew E coli
-Urine culture positive for E coli
- S/p IV Ceftriaxone 1g, now on IV Ceftriaxone 2g 02/24, transition to Ceftin 500 mg twice daily through 03/08 for 14-day course total at the time of discharge
- DC Flagyl 500mg BID 02/24; 02/25 cleared by speech to have regular solids, thin liquids
-Kidney US 02/24 unremarkable appearance of the kidneys without hydronephrosis.
-Noted COVID/Flu (-)
-CXR unrevealing
#Cough
#Congestion
#Rhinorrhea
-CXR 02/24 showing decreased lung volumes and mild gaseous distention of the stomach.
-Nasal spray added.
-Duonebs every 4 hours as needed
-Mucinex 600 mg twice daily
-Lozenges prn
#Acute on chronic heart failure exacerbation, unknown type
#Mild Hypoxic Respiratory Insufficiency, resolved
-f/u echo
-s/p IV lasix 20 mg in ED
-Home dose Lasix 10mg po daily
-Home Toprol XL
-Daily weights
#Essential hypertension
-Toprol-XL and Lasix 10mg daily
#HLD
-Home atorvastatin
#Chronic Hypotension/Orthostatic Hypotension
-Home midodrine 10mg PO TID and Fludrocortisone
-CTM BP
#Neuropathy
-Gabapentin 300mg PO TID
#NIDDM
-ISS
DVT prophylaxis-Lovenox
CODE STATUS-Full code.
Dispo: Home health, back to [facility]
Anticipated Discharge: Within 24 hours
Subjective/Interval History
-
Date of Service: February 26, 2025
-This morning, she is laying asleep in bed but easily arousable. She reports feeling a lot of neuropathic pain as she has not gotten her morning meds. I discussed discharge with her today, however she said that she would like to stay through
tomorrow as she does not feel 100% yet and would like to work with PT again. Otherwise, she has no acute complaints.
Objective Data
-
Labs:
Laboratory Results
02/26/25
06:56
WBC 5.0
Hgb 12.9
Hct 40.2
Plt Count 203
Sodium 140
Potassium 4.0
Chloride 107
Carbon Dioxide 24
BUN 20 H
Creatinine 0.5 L
Glucose 102 H
Calcium 8.6
Total Bilirubin 0.6
AST 39 H
ALT 32
Alkaline Phosphatase 43
Vital Signs:
Vital Signs
Temp Pulse Resp BP Pulse Ox
97.3 F 86 20 106/50 100
02/26/25 07:00 02/26/25 07:00 02/26/25 07:00 02/26/25 07:00 02/26/25 07:00
I&O
02/25/25 02/26/25 02/27/25
06:59 06:59 06:59
Intake Total 600 / 600 1240 / 1240
Balance 600 / 600 1240 / 1240
Physical Exam
-
General: Well Developed, Well Nourished and No Apparent Distress
HEENT: Normocephalic, Atraumatic and Moist Mucous Membranes
Respiratory: Clear to Auscultation
Cardiac: Regular Rhythm
GI: Soft and Nontender
Skin: Warm and Dry
Neuro: AO x 3
Psych: Calm and Intact Judgement/Insight
[2025-02-26] MEDS: CORTEF 10 MG PO ×2 (09:57→21:38)
[2025-02-26 11:11] LABS: Glucose - Point of Care 199 mg/dl (70-99)
[2025-02-26] MEDS: NOVOLOG FLEXPEN-LOW RESISTANCE 1 UNITS SC (13:26)
[2025-02-26] MEDS: ROCEPHIN 2000 MG IV (14:26)
[2025-02-26] MEDS: STERILE WATER FOR INJECTION 20 ML IV (14:27)
--- NOTE | 2025-02-26 14:37 | CM ---
Spoke with Jimmy at reviewed PT with her.
Jimmy said if patient has any new medicine they can not accept her today.
MD indicated patient was on new antibiotics po.
Informed patient on above.
PT indicate VN .
Offered VN patient requested [facility] PCP is DR Kevin Hamilton .
Referral placed in care port.
PLAN Return to tomorrow with [facility]
[2025-02-26 15:00] VITALS: BP 107/55
[2025-02-26] MEDS: LOVENOX 40 MG SC (17:16)
[2025-02-26 17:43] LABS: Glucose - Point of Care 113 mg/dl (70-99)
[2025-02-26] MEDS: LIPITOR 40 MG PO (21:37)
[2025-02-26] MEDS: REMOVE LIDOCAINE PATCH 1 PATCH REMOVE (21:38)
[2025-02-26] MEDS: TYLENOL 650 MG PO (21:39)
[2025-02-26 22:03] LABS: Glucose - Point of Care 148 mg/dl (70-99)
[2025-02-26 23:10] VITALS: BP 112/57
[2025-02-27 06:00] VITALS: BMI 27.2
[2025-02-27 06:59] LABS: Hematocrit 38.7 % (37.0-47.0); Hemoglobin 12.4 g/dL (12.0-16.0); Mean Corp Hgb Conc. 32.0 g/dL (33.0-37.0); Mean Corpuscular Volume 100.8 fL (81.0-99.0); Nucleated Red Blood Cells % 0 %; Platelet Count 232 10^3/uL (130-400); Red Cell Dist. Width 13.4 % (11.5-14.5)
[2025-02-27 08:00] VITALS: BP 118/67
[2025-02-27 08:05] LABS: ALT (SGPT) 27 U/L (0-35); AST (SGOT) 29 U/L (14-36); Albumin 3.4 g/dl (3.5-5.0); Alkaline Phosphatase 47 U/L (38-126); Blood Urea Nitrogen 18 mg/dl (7-17); Calcium 8.6 mg/dl (8.4-10.2); Carbon Dioxide 25 mmol/L (22-30); Chloride 108 mmol/L (98-107); Estimated Creatinine Clearance 71 ml/min; Glucose 91 mg/dl (70-99); Potassium 3.8 mmol/L (3.5-5.1); Sodium 139 mmol/L (135-145); Total Protein 6.1 g/dl (6.3-8.2); eGFR > 60.00
[2025-02-27] MEDS: MUCINEX 600 MG PO (08:11)
[2025-02-27] MEDS: ASPIR LOW (ENTERIC COATED) 81 MG PO (08:11)
[2025-02-27] MEDS: LASIX 10 MG PO (08:11)
[2025-02-27] MEDS: NEURONTIN 300 MG PO (08:11)
[2025-02-27] MEDS: TOPROL XL 12.5 MG PO (08:11)
[2025-02-27] MEDS: CORTEF 10 MG PO (08:11)
[2025-02-27] MEDS: LIDOCAINE 4% PATCH 1 PATCH TOPICAL (08:12)
[2025-02-27] MEDS: FLORINEF 0.2 MG PO (08:12)
[2025-02-27] MEDS: DESENEX/MITRAZOL/ZEASORB 1 APPLIC TOPICAL (08:12)
[2025-02-27] MEDS: TYLENOL 650 MG PO (08:19)
[2025-02-27] MEDS: NOVOLOG FLEXPEN-LOW RESISTANCE SC ×2 (08:19→12:37)
[2025-02-27 08:20] LABS: Glucose - Point of Care 97 mg/dl (70-99)
--- NOTE | 2025-02-27 09:20 | W.PN.HOSP.TC ---
Addendum entered and electronically signed by Cirilo Langford MD 02/27/25 13:52:
Seen and examined the patient. Agree with the plan formatted by the resident. See changes in my documentation.
79[place]year-old [place] [facility] here with E. coli bacteremia.
Ultrasound of the kidney-unremarkable without any hydronephrosis
Chest x-ray-no acute changes. Mild gaseous distention of the stomach
CVS: S1-S2 normal
Chest: CTA B/L
Abdomen: Soft, NT , Bowel sounds present
Extremities: No edema
# Acute metabolic encephalopathy secondary to sepsis-resolved, back to baseline.
# Sepsis present on admission secondary to E. coli bacteremia secondary to E. coli UTI
Blood cultures positive, urine cultures positive for E. coli
Continue IV ceftriaxone till discharge and changed to Ceftin after that
Ultrasound of the kidneys-no hydro
Antibiotics till 03/08/2025
# Acute on chronic heart failure with midrange ejection fraction
Got 1 dose of Lasix in the ER-continue with p.o. Lasix, Toprol
Follow daily weights
Echo with EF 40 to 45%, mild aortic stenosis, mild to moderate MS
Goal-directed medical therapy with MRA, MAGGIE inhibitor/ARB/ARNI limited secondary to hypotension
SGLT2 inhibitor not started because of UTI and sepsis
Outpatient follow-up with Dr. Corea
# Acute hypoxic respiratory gnkmwynkdrtar-miadih-iwr oxygen
Speech evaluation noted. No evidence of aspiration. Will discontinue Flagyl
# Diabetes-hemoglobin A1c-5.9 on 02/23/25, continue metformin, Accu-Cheks and sliding scale coverage
# Hypertension-continue Toprol-XL
# Hyperlipidemia will continue statin
# Chronic orthostatic Hypotension on midodrine , Hydrocortisone and Fludrocortisone. Per brother no diagnosis of adrenal insufficiency.
# Qlsmimgmbu-QUW-ftcjkllj gabapentin
# Arthritis/osteoporosis-on alendronate as outpatient
# DVT prophylaxis-Lovenox
# Full code
D/W RN at bed side
Discussed with case management
More than 30 minutes spent in discharge including
Final examination of the patient
Summarizing hospital stay
Instructions for continuing care to all relevant caregivers
Preparation of discharge records, prescriptions, and referral forms
Original Note:
Today's Communication/Plan
-
IV ceftriaxone transition to p.o. antibiotics
Patient medically stable for discharge
Assessment / Plan
Assessment / Plan
This is a 79 yo woman with generalized muscle weakness, hx development delay, HTN, HLD, NIDDM, balance issues, wheelchair bound who presents from [place] for confusion. At baseline patient is oriented to time and place.
CXR:
No acute disease of the chest
A/P:
#Acute metabolic encephalopathy 2/2 to sepsis d/t E coli bacteremia and E coli UTI, improving
-Admission blood cultures x2 positive and repeat blood cultures x 2 grew E coli
-Urine culture positive for E coli
- S/p IV Ceftriaxone 1g, now on IV Ceftriaxone 2g 02/24, transition to Ceftin 500 mg twice daily through 03/08 for 14-day course total at the time of discharge
- DC Flagyl 500mg BID 02/24; 02/25 cleared by speech to have regular solids, thin liquids
-Kidney US 02/24 unremarkable appearance of the kidneys without hydronephrosis.
-Noted COVID/Flu (-)
-CXR unrevealing
#Cough
#Congestion
#Rhinorrhea
-CXR 02/24 showing decreased lung volumes and mild gaseous distention of the stomach.
-Nasal spray added.
-Duonebs every 4 hours as needed
-Mucinex 600 mg twice daily
-Lozenges prn
#Acute on chronic heart failure exacerbation, unknown type
#Mild Hypoxic Respiratory Insufficiency, resolved
-echo with 40-45% EF
-s/p IV lasix 20 mg in ED
-Home dose Lasix 10mg po daily
-Home Toprol XL
-Daily weights
#Essential hypertension
-Toprol-XL and Lasix 10mg daily
#HLD
-Home atorvastatin
#Chronic Hypotension/Orthostatic Hypotension
-Home midodrine 10mg PO TID and Fludrocortisone
-CTM BP
#Neuropathy
-Gabapentin 300mg PO TID
#NIDDM
-ISS
DVT prophylaxis-Lovenox
CODE STATUS-Full code.
Dispo: Home health, back to [facility]
Anticipated Discharge: Today
Subjective/Interval History
-
Patient was seen at bedside this morning. She reports doing well without any issues. She is eager to get home and reports no nausea vomiting shortness of breath chest pain or headaches. She does have a runny nose and mild nonproductive productive
cough that has been improving. Date of Service: February 27, 2025
Objective Data
-
Labs:
Laboratory Results
02/27/25
06:42
WBC 5.7
Hgb 12.4
Hct 38.7
Plt Count 232
Sodium 139
Potassium 3.8
Chloride 108 H
Carbon Dioxide 25
BUN 18 H
Creatinine 0.6
Glucose 91
Calcium 8.6
Total Bilirubin 0.4
AST 29
ALT 27
Alkaline Phosphatase 47
Vital Signs:
Vital Signs
Temp Pulse Resp BP Pulse Ox
98.7 F 78 19 118/67 95
02/27/25 08:00 02/27/25 08:10 02/27/25 08:00 02/27/25 08:10 02/27/25 08:00
I&O
02/26/25 02/27/25 02/28/25
06:59 06:59 06:59
Intake Total 1240 / 1240 1480 / 1480
Balance 1240 / 1240 1480 / 1480
Review of Systems
-
History Source: Patient
Constitutional: Reports No Symptoms; Denies Fever or Fatigue
EENT: Reports Runny Nose; Denies Tearing, Sore Throat or Mouth Pain
Respiratory: Reports Cough (Nonproductive); Denies Trouble Breathing or Wheezing
Cardiac: Reports No Symptoms; Denies Chest Pain or Palpitations
Abdomen/GI: Reports No Symptoms; Denies Abdominal Pain, Nausea, Vomiting or Diarrhea
Breast: Reports N/A
Genitourinary: Denies Dysuria, Frequency, Flank Pain or Incontinence
Musculoskeletal: Reports No Symptoms
Skin: Reports No Symptoms
Neuro: Denies Dizzy or Headache
Physical Exam
-
General: Well Developed, Well Nourished, No Apparent Distress and Comfortable
HEENT: Normocephalic and Atraumatic
Respiratory: Clear to Auscultation; Negative Wheezes, Rales or Crackles
Cardiac: Regular Rhythm and S1/S2; Negative Murmur
GI: Soft, Nontender, Nondistended and Normal Bowel Sounds
Musculoskeletal: No Clubbing, No Cyanosis and No Edema
Skin: Warm and Dry
Neuro: Awake and Alert
--- NOTE | 2025-02-27 09:39 | CM ---
Addendum entered by Kylah Massey 02/27/25 14:25:
1530 transport set today
spoke with patient brother & he will call to pay for wheelchair van
notified Jimmy at
Original Note:
CM spoke with Jimmy at
agreeable for her to return to facility-faxed clinicals/updated careport
Jimmy states [facility] referral to be placed preferred at facility
spoke with brother Ray-agreeable to [facility], agreeable with wheelchair van cost
IMM reviewed. In chart
CM consult complete dc planning
LM for Naida George liaision [facility]
PLAN: return to [facility] with [facility]
report #: [phone] (Jimmy/nursing) Fax #: [phone]
[employer] van transportation form on chart
[2025-02-27 12:37] LABS: Glucose - Point of Care 138 mg/dl (70-99)
[2025-02-27] MEDS: ROCEPHIN 2000 MG IV (12:56)
[2025-02-27] MEDS: FLUSH (NSS) 1 FLUSH IV (12:56)
[2025-02-27] MEDS: STERILE WATER FOR INJECTION 20 ML IV (12:56)
--- NOTE | 2025-02-27 14:01 | W.DCSUMMARY ---
Discharge Summary
Discharge Data
Date of Admission: 02/22/25
Date of Discharge: 02/27/25
-
Pending Results: No
Hospital Course
Discharging Physician :
Dr. Langford
Dr. Crump
Disposition : long term
Primary care physician : MATTY ROSA MD
Principal Discharge diagnosis :
Acute metabolic encephalopathy and sepsis secondary to E. coli bacteremia and UTI
Chronic Discharge diagnosis :
CHF
Acute hypoxic respiratory insufficiency
Diabetes
Hypertension
Hyperlipidemia
Chronic orthostatic hypotension
Neuropathy
Hospital Course :
Isabela Reyes is a 79-year-old female with past medical history significant for essential hypertension, type 2 diabetes mellitus, unspecified intellectual disabilities, lack of coordination, primarily wheelchair-bound, hyperlipidemia,
generalized muscle weakness presents to the emergency [facility] [place] for evaluation of new onset confusion and increased work of breathing. In the ED blood pressure was 112/73 pulse 108 temp of 98.3 satting at 98% UA with
40-50 WBC, + nitrite, 11-15 RBC, BNP 3800, elevated troponins with normal EKG chest x-ray showed no abnormalities. She was started on ceftriaxone and IV Lasix for possible acute on chronic heart failure exacerbation. On hospital day 1 patient had
a fever of 102, respiratory pathogen panel was negative. On hospital day 2 blood cultures returned positive for E. coli, urine cultures returned positive for E. coli and patient was continued on antibiotics. An echo was also conducted which
showed an EF of 40 to 45% with mild aortic stenosis and moderate mitral stenosis. GDMT was limited due to low blood pressures and active infection. Patient was noted to have worsening cough despite no respiratory pathogen, SENIOR SYSTEMS SOFTWARE ENGINEER was consulted and
Flagyl was added on for concern for aspiration pneumonia. SENIOR SYSTEMS SOFTWARE ENGINEER testing did not show any aspiration and Flagyl was discontinued. Renal ultrasound was ordered to rule out retention which showed no hydronephrosis. On hospital day 6 patient was
medically stable for discharge, she was transitioned from IV ceftriaxone to Ceftin to complete the course of antibiotics. On discharge vital signs showed a BP of 118/67 pulse of 78 temperature of 98.7 and satting at 95%.
Important imaging findings :
02/24/2025 renal ultrasound:
IMPRESSION:
Unremarkable sonographic appearance of the kidneys without hydronephrosis.
02/24/2025 chest x-ray:
IMPRESSION:
No acute cardiopulmonary abnormality. Mild decreased lung volumes, similar to prior.
Mild gaseous distention of the stomach.
02/23/2025 echocardiogram
SUMMARY
1. Technically difficult study. Echo contrast was utilized.
2. Normal left ventricular size with mildly reduced left ventricular systolic function. There is mid to apical anterior and anteroseptal hypokinesis with estimated left ventricular ejection fraction of 40 to 45% by Parmar's method. The basal
segments are hyperdynamic which can represent possible stress-induced or Takotsubo cardiomyopathy versus LAD territory infarct.
3. Trileaflet aortic valve with thickened aortic valve leaflets. Peak and mean transaortic gradients of 23 and 12 mmHg consistent with mild aortic stenosis. No aortic regurgitation.
4. Thickening of mitral valve leaflets with moderate mitral annular calcification. Mild to moderate mitral stenosis with peak and mean mitral gradients of 15 and 6 mmHg, heart rate of 108 bpm. No significant mitral regurgitation.
5. Moderate tricuspid regurgitation with estimated pulmonary artery systolic pressure of 48 mmHg.
6. Compared to prior echocardiogram from August 25, 2023, mild LV systolic dysfunction and wall motion abnormalities appear to be new.
02/23/2025 EKG
NORMAL SINUS RHYTHM
CANNOT RULE OUT ANTEROSEPTAL INFARCT (CITED ON OR BEFORE 22-Feb-2025)
02/22/2025 EKG
SINUS TACHYCARDIA
ANTERIOR INFARCT , AGE UNDETERMINED
02/22/25 chest x-ray:
IMPRESSION:
No acute disease of the chest
Procedure findings :
Discharge Plan
-
Patient Disposition: Usp/SNF
Discharge Diagnosis/Procedures: Acute metabolic encephalopathy and sepsis secondary to E. coli bacteremia and UTI
CHF
Acute hypoxic respiratory insufficiency
Diabetes
Hypertension
Hyperlipidemia
Chronic orthostatic hypotension
Neuropathy
Condition: Good
Diet: Low Sodium, 2 Gram Sodium, Diabetic, Carb Controlled and Restrict fluids to 64 oz
Activity: As tolerated
Driving Restrictions: As prior to admission
Bathing Restrictions: None
Blood Work: CBC with differential in a week
Other Services: VN
Specialty Instructions: Weigh Daily- Call MD for wt gain/loss 3 lbs overnight/5 lbs in 1 week
Referrals:
MATTY ROSA MD [Family Provider, Internal Medicine] - in less than 1 week
Referral Note: Follow-up regarding this hospitalization and your bacteremia with your PCP. Consider vaginal estrogen cream for recurrent UTIs.
Ivan Corea MD [Active, Cardiology]
Additional Discharge Medication Instructions: Take Ceftin 500 mg twice daily for UTI with last dose on 03/08
Prescriptions:
New
cefuroxime axetil 500 mg tablet
500 mg PO BID 10 Days Qty: 20 0RF
Rx Instructions:
Take twice daily would last dose on 03/08
Continued
celecoxib 200 mg capsule
200 mg PO DAILY
atorvastatin 40 mg tablet
40 mg PO HS
metformin 500 mg tablet
500 mg PO DAILY
ascorbic acid (vitamin C) [Vitamin C] 1,000 mg tablet
1,000 mg PO DAILY
acetaminophen 325 mg tablet
650 mg PO Q4HPRN PRN (Reason: fever>100, pain)
lidocaine [Lidocaine Pain Relief] 4 % adhesive patch,medicated
1 patch TOPICAL DAILY
polyethylene glycol 3350 [Miralax] 17 gram Powder In Packet
17 g PO DAILY PRN (Reason: constipation)
alendronate 70 mg tablet
70 mg PO MO@0600
midodrine 5 mg tablet
15 mg PO TID
Rx Instructions:
Hold for SBP>110
aspirin 81 mg tablet,delayed release (DR/EC)
81 mg PO DAILY
calcium carbonate 600 mg calcium (1,500 mg) tablet
1,200 mg PO DAILY
hydrocortisone 1 % cream
1 applic topical [id number] PRN (Reason: rash on back, stomach, arms)
nitroglycerin 0.4 mg Tablet, Sublingual
0.4 mg SUBLINGUAL Q5MPRN PRN (Reason: chest pain)
gabapentin 300 mg capsule
300 mg PO TID
furosemide 20 mg tablet
10 mg PO DAILY
metoprolol succinate 25 mg tablet extended release 24 hr
12.5 mg PO DAILY
hydrocortisone 10 mg tablet
10 mg PO BID
fluticasone propionate 50 mcg/actuation spray,suspension
1 spray INTRANASAL BID
fludrocortisone 0.1 mg tablet
0.2 mg PO DAILY
cholecalciferol (vitamin D3) [Vitamin D3] 25 mcg (1,000 unit) tablet
25 mcg PO DAILY
Discharge Orders:
Discharge Patient (As Directed); Ordered 02/27/25
Ordered By: Cirilo Langford
Discharge Date and Time
Print Language: ITALIAN
[2025-02-27] MEDS: FLUZONE HIGH-DOSE 2025-26 0.5 ML IM (14:28)
[2025-02-27 15:20] VITALS: BP 112/70
--- NOTE | 2025-02-28 11:03 | W.HF.CON ---
Heart Failure
- LV Function
Left ventricular function study result: LV Ejection fraction 41-49%
Ejection Fraction Percentage: 40-45
- ARNI
Patient already on ARNI: No
Heart Failure ARNI Not Indicated: LV Ejection Fraction >/= 40%
- ACEI/ARB
Patient already on ACEI/ARB: No
Heart Failure ACEI/ARB Not Indicated: LV Ejection Fraction > 40%
- Beta Rosanne
Patient already on Evidence Based Beta Rosanne: Yes
- Mineralocorticord Receptor Antagonist
Patient already on MRA: No
Heart Failure MRA Not Indicated: LV Ejection Fraction > 40%
- SGLT-2 Inhibitor
Patient already on SGLT-2 Inhibitor: No
Heart Failure SGLT-2 Inhibitor Contraindication: Patient Refusal (UTI)
- NYHA CHF Classification
NYHA CHF Classification Level: Class III - Symptoms w/ min exertion, interferes w/ nml daily activity
- ACC/AHA Stage
ACC/AHA Stage: Stage C: Symptomatic Heart Failure
== END 2025-02-27 15:43 | disposition home health service (06) | DRG 871 ==
LOC: 3 WEST ACU 15:03
PROVIDERS: Internal Medicine; Nurse Practitioner Family; Student in an Organized Health Care Education/Training Program; ADMITTING PHYSICIAN Student in an Organized Health Care Education/Training Program; ATTENDING PHYSICIAN Hospitalist; EMERGENCY PHYSICIAN Emergency Medicine; FAMILY PHYSICIAN Internal Medicine
PROC: 3E02340 Introduction of Influenza Vaccine into Muscle, Percutaneous Approach (ICD-10-PCS; 2025-02-27)
DX: A41.51 Sepsis due to Escherichia coli [E. coli] (principal); G92.8 Other toxic encephalopathy; J96.01 Acute respiratory failure with hypoxia; N39.0 Urinary tract infection, site not specified; I50.22 Chronic systolic (congestive) heart failure; I11.0 Hypertensive heart disease with heart failure; E78.5 Hyperlipidemia, unspecified; I95.1 Orthostatic hypotension; E11.40 Type 2 diabetes mellitus with diabetic neuropathy, unspecified; Z99.3 Dependence on wheelchair; F79 Unspecified intellectual disabilities; I05.0 Rheumatic mitral stenosis; I35.0 Nonrheumatic aortic (valve) stenosis; I07.1 Rheumatic tricuspid insufficiency; I05.8 Other rheumatic mitral valve diseases; Z79.84 Long term (current) use of oral hypoglycemic drugs; Z79.83 Long term (current) use of bisphosphonates; Z96.653 Presence of artificial knee joint, bilateral; Z79.899 Other long term (current) drug therapy; I25.119 Atherosclerotic heart disease of native coronary artery with unspecified angina pectoris; I27.20 Pulmonary hypertension, unspecified; K59.00 Constipation, unspecified; L29.9 Pruritus, unspecified; M81.0 Age-related osteoporosis without current pathological fracture; Z11.52 Encounter for screening for COVID-19; Z23 Encounter for immunization
CPT/HCPCS: 71045; 71046; 76770; 80053; 81003; 81015; 82805; 82962; 83036; 83605; 83735; 83880; 84100; 84145; 84484; 85025; 87040; 87070; 87077; 87086; 87088; 87154; 87186; 87205; 87502; 87811; 90662; 92610; 93005; 93306; 94640; 97110; 97116; 97162; 99285; G0008; Q9950